=== PATIENT | female | born 1980 | race Two or more races ===

== ENCOUNTER 2018-11-11 16:20 | Emergency (ER) | payer OTHER ==
[~2018-11-11] VITALS: Ht 165.1 cm; Wt 68.0 kg
[2018-11-11] MEDS ORDERED: PRILOSEC10 MG (16:27)
== END 2018-11-11 16:53 | disposition home or self-care (01) ==
LOC: ER 16:20
DX: M54.5 Low back pain (principal)

== ENCOUNTER 2020-03-15 13:26 | Outpatient (CLI) | payer OTHER ==
[~2020-03-15 13:26] MED LIST: PRILOSEC10 MG
== END 2020-03-15 13:39 | disposition home or self-care (01) ==
LOC: SONOGRAMA 13:26
PROVIDERS: ATTEND Surgery
DX: N60.02 Solitary cyst of left breast (principal); N64.59 Other signs and symptoms in breast; N60.11 Diffuse cystic mastopathy of right breast; N60.12 Diffuse cystic mastopathy of left breast